=== PATIENT | female | born 1960 | race Two or more races ===

== ENCOUNTER 2018-10-28 13:35 | Emergency (ER) | payer MEDICARE, MEDICAID ==
[~2018-10-28] VITALS: Ht 162.6 cm; Wt 79.0 kg
[~2018-10-28 13:35] MED LIST: ACAR25TA2 PO; ASPI81TA52 PO; CEPH500C3 PO; CHOL10002 PO; CLON0.5T12 PO; HYDR12.5 PO; LINA5TAB4 PO; LISI-600 PO; MILK200C4 PO; OMEP20CA4 PO; VITA200T8 PO; VITA600C3 PO
[2018-10-28] MEDS ORDERED: benzonatate 100mg capsule PO ONE (14:10)
[2018-10-28] MEDS ORDERED: predniSONE 20 mg tablet PO ONE (14:10)
[2018-10-28] MEDS ORDERED: ipratropium/albuterol 3ml nebule NEB ONE (14:10)
[2018-10-28] MEDS ORDERED: ALB0.5UD IH (14:43)
[2018-10-28] MEDS ORDERED: INHA1SPA3 MC (14:43)
[2018-10-28] MEDS ORDERED: BENZ-16 PO (14:43)
[2018-10-28] MEDS ORDERED: PRED20TA PO (14:43)
[2018-10-28 14:55] VITALS: BP 135/71
== END 2018-10-28 14:57 | disposition home or self-care (01) ==
LOC: ER 13:35
DX: J06.9 Acute upper respiratory infection, unspecified (principal); J98.01 Acute bronchospasm; I10 Essential (primary) hypertension; F41.9 Anxiety disorder, unspecified; Z90.49 Acquired absence of other specified parts of digestive tract; Z90.710 Acquired absence of both cervix and uterus; Z98.51 Tubal ligation status; Z88.1 Allergy status to other antibiotic agents; Z88.6 Allergy status to analgesic agent; Z88.8 Allergy status to other drugs, medicaments and biological substances; Z79.82 Long term (current) use of aspirin; Z79.899 Other long term (current) drug therapy; Z86.73 Personal history of transient ischemic attack (TIA), and cerebral infarction without residual deficits; Z87.891 Personal history of nicotine dependence
CPT/HCPCS: 71046; 94640; 94760; 99283; J7512

== ENCOUNTER 2019-06-28 09:38 | Emergency (ER) | payer MEDICARE, MEDICAID ==
[~2019-06-28] VITALS: Ht 162.6 cm; Wt 85.0 kg
[~2019-06-28 09:38] MED LIST changes: -CLON0.5T12 PO; +CLON0.5T4 PO; +INHA1SPA3 MC
[2019-06-28 10:03] VITALS: BP 144/77
[2019-06-28] MEDS ORDERED: ipratropium/albuterol 3ml nebule NEB ONE (10:50)
[2019-06-28] MEDS ORDERED: ALBU18HF2 INH (10:55)
[2019-06-28] MEDS ORDERED: BENZ-16 PO (10:55)
[2019-06-28] MEDS ORDERED: ALB0.5UD IH (11:43)
== END 2019-06-28 11:58 | disposition home or self-care (01) ==
LOC: ER 09:38
DX: J20.9 Acute bronchitis, unspecified (principal); I10 Essential (primary) hypertension; J45.909 Unspecified asthma, uncomplicated; F41.9 Anxiety disorder, unspecified; Z86.73 Personal history of transient ischemic attack (TIA), and cerebral infarction without residual deficits; Z87.891 Personal history of nicotine dependence; Z90.49 Acquired absence of other specified parts of digestive tract; Z90.710 Acquired absence of both cervix and uterus; Z98.51 Tubal ligation status; Z98.890 Other specified postprocedural states; Z88.5 Allergy status to narcotic agent; Z88.1 Allergy status to other antibiotic agents; Z88.8 Allergy status to other drugs, medicaments and biological substances; Z79.82 Long term (current) use of aspirin; Z79.2 Long term (current) use of antibiotics; Z79.899 Other long term (current) drug therapy
CPT/HCPCS: 71046; 94640; 99283

== ENCOUNTER 2019-09-27 13:48 | Emergency (ER) | payer MEDICARE, MEDICAID ==
[~2019-09-27] VITALS: Ht 162.6 cm; Wt 83.0 kg
[~2019-09-27 13:48] MED LIST changes: +ALBU18HF2 INH
[2019-09-27 14:14] LABS: BASOPHILS # (AUTO) 0.1 X10'3 (0-0.2); BASOPHILS % (AUTO) 0.7 % (0-1); EOSINOPHILS # (AUTO) 0.2 X10'3 (0-0.9); EOSINOPHILS % (AUTO) 1.9 % (0-6); HEMATOCRIT 39.3 % (35.0-45.0); HEMOGLOBIN 13.4 g/dl (12.0-16.0); LYMPHOCYTES # (AUTO) 1.7 X10'3 (1.1-4.8); LYMPHOCYTES % (AUTO) 15.8 % (21-51); MEAN CORPUSCULAR HEMOGLOBIN 27.2 PG (27.0-31.0); MEAN CORPUSCULAR HGB CONC 34.2 g/dL (33.0-36.5); MEAN CORPUSCULAR VOLUME 79.6 FL (78-98); MEAN PLATELET VOLUME 9.7 FL (7.4-10.4); MONOCYTES # (AUTO) 0.9 X10'3 (0-0.9); MONOCYTES % (AUTO) 8.3 % (2-12); NEUTROPHILS % (AUTO) 73.3 % (42-75); PLATELET COUNT 223 X10'3 (140-440); RED BLOOD COUNT 4.94 X10'6 (4.20-5.60); RED CELL DISTRIBUTION WIDTH 13.4 % (11.5-14.5)
[2019-09-27 14:27] LABS: CLARITY,URINE CLEAR (Clear); COLOR,URINE STRAW (Yellow); GLUCOSE, URINE NEGATIVE (Neg); KETONES,URINE NEGATIVE (Neg); LEUKOCYTE ESTERASE ,URINE NEGATIVE (Neg); NITRITES, URINE NEGATIVE (Neg); OCCULT BLOOD,URINE TRACE-INTACT (Neg); PROTEIN,URINE NEGATIVE (Neg); UROBILINOGEN,URINE 0.2 E.U/dL (0.2-1.0)
[2019-09-27 14:29] LABS: ALANINE AMINOTRANSFERASE 46 U/L (12-78); ALBUMIN 4.2 G/DL (3.4-5.0); ALKALINE PHOSPHATASE 132 IU/L (46-116); ANION GAP 9 (8-16); ASPARTATE AMINO TRANSFERASE 21 U/L (10-37); BILIRUBIN,TOTAL 0.4 MG/DL (0.1-1.0); BLOOD UREA NITROGEN 12 MG/DL (7-18); BUN/CREATININE RATIO 20.7 (6.6-38.0); CALCIUM 10.4 MG/DL (8.5-10.1); CHLORIDE 105 MMOL/L (99-107); CREATININE 0.58 MG/DL (0.40-0.90); GLUCOSE 145 MG/DL (70-104); LIPASE 93 U/L (73-393); POTASSIUM 3.8 MMOL/L (3.5-5.1); SODIUM 139 MMOL/L (135-145); TOTAL CARBON DIOXIDE 25.1 MMOL/L (24-32); TOTAL PROTEIN 8.3 G/DL (6.4-8.2); eGFR > 90 ML/MIN
[2019-09-27 14:40] LABS: URINE HCG NEGATIVE (NEG)
[2019-09-27 14:44] LABS: UA COLLECTION TYPE CLN CATCH MIDSTREAM
[2019-09-27 14:45] LABS: RBC,URINE NONE SEEN /HPF (0-2)
[2019-09-27 14:46] LABS: BACTERIA,URINE NONE SEEN /HPF (Neg); MUCUS STRANDS NONE SEEN /LPF (Neg); SQUAMOUS EPITHELIAL CELL,UR MODERATE /LPF (FEW)
[2019-09-27] MEDS ORDERED: ibuprofen tablet 400 MG TABLET PO ONE (14:55)
[2019-09-27] MEDS ORDERED: ketorolac trometh inj. 60 MG/2 ML VIAL IM ONE (15:00)
--- NOTE | 2019-09-27 15:00 | NUR ---
Spoke with Deacon BUENO regarding change from motrin to toradol IM. Gennaro BUENO stated to place verbal order for Toradol 15 mg IM once now. Estrella PATHAK aware.
[2019-09-27 16:02] VITALS: BP 145/75
[2019-09-27] MEDS ORDERED: CIPR-230 PO (16:32)
[2019-09-27] MEDS ORDERED: METR-159 PO (16:32)
== END 2019-09-27 16:40 | disposition home or self-care (01) ==
LOC: ER 13:49
DX: K52.9 Noninfective gastroenteritis and colitis, unspecified (principal); I10 Essential (primary) hypertension; J45.909 Unspecified asthma, uncomplicated; F41.9 Anxiety disorder, unspecified; Z90.49 Acquired absence of other specified parts of digestive tract; Z90.710 Acquired absence of both cervix and uterus; Z98.51 Tubal ligation status; Z98.890 Other specified postprocedural states; Z86.73 Personal history of transient ischemic attack (TIA), and cerebral infarction without residual deficits; Z88.1 Allergy status to other antibiotic agents; Z88.5 Allergy status to narcotic agent; Z88.8 Allergy status to other drugs, medicaments and biological substances; Z79.82 Long term (current) use of aspirin; Z79.2 Long term (current) use of antibiotics; Z79.899 Other long term (current) drug therapy
CPT/HCPCS: 36415; 74176; 80053; 81001; 81025; 83690; 85025; 87088; 96372; 99284; J1885

== ENCOUNTER 2022-10-27 04:34 | Emergency (ER) | payer MEDICARE, MEDICAID ==
[~2022-10-27] VITALS: Ht 165.1 cm; Wt 77.8 kg
[~2022-10-27 04:34] MED LIST changes: -LISI-600 PO; +LISI20TA28 PO
[2022-10-27 04:51] VITALS: BP 165/80
[2022-10-27] MEDS ORDERED: AMOX-117 PO (04:58)
[2022-10-27] MEDS ORDERED: DIPH25CA83 PO (04:58)
[2022-10-27] MEDS ORDERED: amox tr/potassium clavulanate 875/125mg TAB PO ONE (05:00)
[2022-10-27] MEDS ORDERED: diphenhydrAMINE 25mg capsule PO ONE (05:00)
== END 2022-10-27 05:14 | disposition home or self-care (01) ==
LOC: ER 04:34
DX: H66.92 Otitis media, unspecified, left ear (principal); I10 Essential (primary) hypertension; J45.909 Unspecified asthma, uncomplicated; Z88.1 Allergy status to other antibiotic agents; Z88.5 Allergy status to narcotic agent; Z88.8 Allergy status to other drugs, medicaments and biological substances; Z90.49 Acquired absence of other specified parts of digestive tract; Z98.890 Other specified postprocedural states; Z90.710 Acquired absence of both cervix and uterus
CPT/HCPCS: 99283; Q0163

== ENCOUNTER 2022-10-27 17:44 | Emergency (ER) | payer MEDICARE, MEDICAID ==
[~2022-10-27] VITALS: Ht 162.6 cm; Wt 77.3 kg
[~2022-10-27 17:44] MED LIST changes: +AMOX-117 PO; +DIPH25CA83 PO
[2022-10-27 18:15] VITALS: BP 145/71
== END 2022-10-27 19:06 | disposition home or self-care (01) ==
LOC: ER 17:45
DX: H66.90 Otitis media, unspecified, unspecified ear (principal); H92.22 Otorrhagia, left ear; I11.0 Hypertensive heart disease with heart failure; F41.9 Anxiety disorder, unspecified; Z90.49 Acquired absence of other specified parts of digestive tract; Z98.890 Other specified postprocedural states; Z88.1 Allergy status to other antibiotic agents; Z88.5 Allergy status to narcotic agent; Z88.6 Allergy status to analgesic agent; Z88.8 Allergy status to other drugs, medicaments and biological substances; Z79.899 Other long term (current) drug therapy; Z79.1 Long term (current) use of non-steroidal anti-inflammatories (NSAID); Z79.2 Long term (current) use of antibiotics
CPT/HCPCS: 99281

== ENCOUNTER 2023-11-15 22:04 | Emergency (ER) | payer MEDICARE, MEDICAID ==
[~2023-11-15] VITALS: Ht 162.6 cm; Wt 76.4 kg
[~2023-11-15 22:04] MED LIST changes: -AMOX-117 PO
[2023-11-15 22:15] VITALS: BP 140/61; PULSE 79; RESP 16; TEMP 96.6; O2SAT 99
== END 2023-11-15 23:27 | disposition left against medical advice (07) ==
LOC: ER 22:04
DX: S61.219A Laceration without foreign body of unspecified finger without damage to nail, initial encounter (principal); Z53.21 Procedure and treatment not carried out due to patient leaving prior to being seen by health care provider; X58.XXXA Exposure to other specified factors, initial encounter; Y93.89 Activity, other specified; Y92.89 Other specified places as the place of occurrence of the external cause; Y99.8 Other external cause status
CPT/HCPCS: 99281

== ENCOUNTER 2024-05-24 11:42 | Emergency (ER) | payer MEDICARE, MEDICAID ==
[~2024-05-24] VITALS: Ht 162.6 cm; Wt 70.9 kg
[2024-05-24 13:20] VITALS: BP 126/68; PULSE 78; RESP 18; TEMP 98.9; O2SAT 98
== END 2024-05-24 13:23 | disposition home or self-care (01) ==
LOC: ER 11:42
DX: S46.911A Strain of unspecified muscle, fascia and tendon at shoulder and upper arm level, right arm, initial encounter (principal); I10 Essential (primary) hypertension; J45.909 Unspecified asthma, uncomplicated; F41.9 Anxiety disorder, unspecified; F10.90 Alcohol use, unspecified, uncomplicated; Z88.8 Allergy status to other drugs, medicaments and biological substances; Z88.5 Allergy status to narcotic agent; Z79.82 Long term (current) use of aspirin; Z79.899 Other long term (current) drug therapy; Z86.73 Personal history of transient ischemic attack (TIA), and cerebral infarction without residual deficits; Z90.49 Acquired absence of other specified parts of digestive tract; Z90.710 Acquired absence of both cervix and uterus; Z98.51 Tubal ligation status; X58.XXXA Exposure to other specified factors, initial encounter; Y93.89 Activity, other specified; Y92.89 Other specified places as the place of occurrence of the external cause; Y99.8 Other external cause status
CPT/HCPCS: 73030; 99283; A4565

== ENCOUNTER 2025-06-16 06:08 | Emergency (ER) | payer MEDICARE, MEDICAID ==
[~2025-06-16] VITALS: Ht 162.6 cm; Wt 69.9 kg
[2025-06-16 06:14] VITALS: TEMP 97.4
--- NOTE | 2025-06-16 07:13 | RADIOLOGY REPORT ---
CHEST RADIOGRAPH Indication: CCC Technique: Single frontal view of the chest was obtained Comparison: CHEST,TWO VIEWS on DOS: 06/28/19 FINDINGS: Lines and Tubes: None Lungs: No focal consolidation. Pleura: No effusion. No pneumothorax. Cardiomediastinal contours: Unremarkable Bones: No acute osseous abnormality. IMPRESSION: 1. No acute cardiopulmonary disease.
--- NOTE | 2025-06-16 08:38 | ELECTROCARDIOGRAPH REPORT ---
[facility], [place] Test Date: 2025-06-16 Test Time: 08:37:13 Pat Name: MARGARET YANG Department: [facility]- Patient ID: [facility]-[id number] Room: Gender: F Glass Smoother: : 1960 Requested By: BRIDGETTE CHICAS Order Number: [id number] Reading MD: Dr. Jeff Guerra Measurements Intervals [place] Rate: 72 P: 42 WA: 190 QRS: -1 QRSD: 91 T: 16 QT: 356 QTc: 390 Interpretive Statements Sinus rhythm Low voltage, precordial leads Left ventricular hypertrophy Anterior Q waves, possibly due to LVH Electronically Signed On 06-18-2025 20:43:[address] Jeff Guerra Please click the below link to view image of tracing.
[2025-06-16 09:13] LABS: MEAN PLATELET VOLUME 10.0 FL (7.4-10.4); RED CELL DISTRIBUTION WIDTH 14.1 % (11.5-14.5)
[2025-06-16 09:21] LABS: CREATININE 0.56 MG/DL (0.40-0.90); TOTAL CARBON DIOXIDE 29.1 MMOL/L (24-32); eCRCL 84 ML/MIN; eGFR > 90 ML/MIN
--- NOTE | 2025-06-16 10:40 | Physician Documentation ---
History of Present Illness ~ Chief Complaint: Cold, cough & congestion Stated Complaint: FLU SYMPTOMS Time Seen by MD: 07:50 Primary Medical Doctor: [facility] Mode of Arrival: POV, Ambulatory HPI 65-year-old female presenting with cough and congestion for the past 2-3 days. Patient states that initially she had some sinus congestion and now it has moved down more into her chest. She got concerned as today she started coughing up a little bit of blood. She has been coughing heavily for the past couple of days initially producing green sputum which has now cleared up but now she has noti paul a little bit of blood. She was seen at urgent care clinic couple of days ago and given loratadine and this is actually made her feel much better. She had a little bit of chest heaviness with the cough but no shortness of breath. She otherwise denies any fever, chills or any other associated symptoms. Medication Reconciliation Allergies: Coded Allergies: azithromycin (Verified Allergy, Unknown, 06/16/25) codeine (Verified Allergy, Unknown, 06/16/25) cyclobenzaprine (Verified Allergy, Unknown, 06/16/25) amitriptyline (Verified Adverse Reaction, Mild, KEEPS HER AWAKE, 06/16/25) baclofen (Verified Adverse Reaction, Mild, AEFFECT LIVER, 06/16/25) Uncoded Allergies: SHELLFISH ALLERGY (Adverse Reaction, Severe, 09/27/19) Scheduled Acarbose* (Precose*), 50 MG PO TIDWM, (Reported) Albuterol Sulfate (Ventolin Hfa), 2 PUFFS INH Q4HPRN Aspirin (Aspirin EC), 1 TABLET PO DAILY, (Reported) Cephalexin Monohydrate (Cephalexin), PO BID, (Reported) Cholecalciferol (Vitamin D3) (Vitamin D3), 1 TABLET PO DAILY, (Reported) Clonazepam (Clonazepam), PO BID, (Reported) Diphenhydramine HCl (Benadryl), 1 CAP PO TID Hydrochlorothiazide (Hydrochlorothiazide), 1 CAP PO DAILY, (Reported) Linagliptin (Tradjenta), 1 TABLET PO DAILY, (Reported) Lisinopril (Lisinopril), 1 TABLET PO DAILY, (Reported) Milk Thistle Seed Extract (Milk Thistle), 200 MG PO DAILY, (Reported) Omeprazole (Prilosec), 1 CAP PO DAILY, (Reported) Vitamin E Acetate (Vitamin E), 600 TAB PO DAILY, (Reported) Vitamin E Mixed (Vitamin E), TAB PO DAILY, (Reported) Durable Medical Equipment Inhaler, Assist Devices (Aerochamber Mini), UNIT , (DME) Past Medical History Past Medical History: CVA/TIA/Stroke, Hypertension, Asthma, Pneumonia, UTI, Anxiety Past Surgical History: appendectomy, cholecystectomy, hysterectomy, tubal ligation Smoking Status: Never smoker Alcohol Use: Sober Lives with: Family Lives In: Home Review of Systems All Other Systems at this time: Reviewed and Negative Physical Exam Vital Signs: Temperature: 97.4, Source: Temporal, Heart Rate: 97, Respiratory Rate: 14, BP: 146/93, Pulse Oximetry: 95, Weight: 69.900 Oxygen Flow Rate: 0 Physical Exam I have reviewed the triage vitals. CONST: Well developed and well nourished. In no acute distress HENT: Head Atraumatic EYES: Pupils are equal, round and reactive to light. Normal conjunctiva NECK: Normal range of motion. Supple. CARDIO: Normal rate and regular rhythm. No murmurs, rubs, or gallops. S1, S2. PULM/CHEST: No respiratory distress. Lungs clear to auscultation. No wheeze ABD: Soft and nontender. Nondistended. Bowel sounds normal. No guarding. : Exam deferred MSK: No edema. No deformity. NEURO: Alert and oriented to person, place and time. Moving all extremities SKIN: Warm and dry. PSYCH: Normal mood and affect. Good eye contact. Progress Results/Orders Results/Orders Orders - BRIDGETTE CHICAS MD Chest,Single View (06/16/25 06:41) Completed Orders - BRIDGETTE CHICAS MD Chest,Single View (06/16/25 06:41) Cbc/Diff (06/16/25 08:16) BMP (06/16/25 08:16) Hs Troponin I W Calculations (06/16/25 08:16) Electrocardiogram (06/16/25 ) Vital Signs 06/16/25 06/16/25 06/16/25 06/16/25 06:14 08:02 08:45 10:58 Temp 97.4 Pulse 82 97 91 Resp 18 16 14 16 B/P (MAP) 124/76 146/93 (110) 102/68 Pulse Ox 98 95 96 O2 Flow Rate 0 Laboratory Tests Test 06/16/25 08:29 White Blood Count 7.1 Red Blood Count 4.74 Hemoglobin 13.0 Hematocrit 38.5 Mean Corpuscular Volume 81.2 Mean Corpuscular Hemoglobin 27.5 Mean Corpuscular Hemoglobin Concent 33.9 Red Cell Distribution Width 14.1 Platelet Count 191 Mean Platelet Volume 10.0 Neutrophils (%) (Auto) 64.2 Lymphocytes (%) (Auto) 22.2 Monocytes (%) (Auto) 9.8 Eosinophils (%) (Auto) 3.2 Basophils (%) (Auto) 0.6 Neutrophils # (Auto) 4.6 Lymphocytes # (Auto) 1.6 Monocytes # (Auto) 0.7 Eosinophils # (Auto) 0.2 Basophils # (Auto) 0.0 CBC Comment Sodium Level 139 Potassium Level 4.1 Chloride Level 104 Carbon Dioxide Level 29.1 Anion Gap 6 L Blood Urea Nitrogen 16 Creatinine 0.56 Estimated GFR/1.73 m2 > 90 BUN/Creatinine Ratio 28.6 H Glucose Level 110 H Calcium Level 9.7 Troponin I High Sensitivity 5 Albumin 3.9 Chemistry Comments Medical Decision Making Additional information obtaine: N/A Findings - Differential Dx:Considerations: Unlikely: Allergic rhinitis, Influenza, Otitis media, Peritonsillar abscess, Pharyngitis-Diphtheria, Pharyngitis-Streptoccal, Pharyngitis-Viral, Pneumonia, Pnuemonitis, Sinusitis, URI, Other Differential Diagnosis 65-year-old female presenting with sinusitis and upper respiratory infection with postnasal drip causing cough. I suspect that the little bit of blood that she noticed in her sputum is reactive secondary to the cough and is not overly concerning. Chest x-ray was unremarkable. Lab workup was completely unremarkable as well. Patient looks great and actually stated that she was starting to feel better over the last day or so. Her vitals are normal as well. She is stable and safe to be discharged home. I advised her to follow up closely with her primary care physician in the next 2-3 days. Continue with the loratadine that she has already been prescribed. Monitor for improvement and resolution and return to the ED with any acutely worsening symptoms. Patient expressed full understanding of the assessment and plan and was amenable. Departure Disposition: HOME / SELF CARE / HOMELESS Impression: Primary Impression: Sinusitis Additional Impression: Acute respiratory infection Condition: Stable Referrals: NO PRIMARY CARE PROVIDER (PCP) Signature Scribe Signature: - Attestation: - BRIDGETTE CHICAS MD Jun 16, 2025 10:40
[2025-06-16 10:58] VITALS: BP 102/68; PULSE 91; RESP 16; O2SAT 96
== END 2025-06-16 10:58 | disposition home or self-care (01) ==
LOC: ER 06:09
DX: J32.9 Chronic sinusitis, unspecified (principal); J22 Unspecified acute lower respiratory infection; J45.909 Unspecified asthma, uncomplicated; I10 Essential (primary) hypertension; Z86.73 Personal history of transient ischemic attack (TIA), and cerebral infarction without residual deficits; F41.9 Anxiety disorder, unspecified; Z88.1 Allergy status to other antibiotic agents; Z88.5 Allergy status to narcotic agent; Z88.8 Allergy status to other drugs, medicaments and biological substances; Z90.49 Acquired absence of other specified parts of digestive tract; Z90.710 Acquired absence of both cervix and uterus; Z87.440 Personal history of urinary (tract) infections; Z79.82 Long term (current) use of aspirin; Z79.899 Other long term (current) drug therapy
CPT/HCPCS: 36415; 71045; 80048; 84484; 85025; 93005; 99285